=== PATIENT | female | born 1990 | race Caucasian/White ===

== ENCOUNTER 2020-08-08 14:35 | Emergency (ER) | payer OTHER, SELFPAY ==
[2020-08-08 15:00] VITALS: BP 155/88; PULSE 91; RESP 16; TEMP 36.2; O2SAT 97; BMI 31.9
--- NOTE | 2020-08-08 15:06 | DI.US.S_ITS ---
PROCEDURE: US ABDOMEN LIMITED INDICATIONS: RIGHT UPPER QUADRANT PAIN TECHNIQUE: Real-time focused scanning was performed of the abdomen, with image documentation. COMPARISON: None. FINDINGS: The liver is normal in size at 14.2 cm craniocaudad with normal echotexture. The gallbladder is normal and no biliary distention is found. The pancreas could not be seen due to bowel gas. IMPRESSION: Normal limited abdominal ultrasound of the right upper quadrant, source of pain is not found. Dictated by: James Adam M.D. on 08/08/2020 at 15:52 Approved by: James Adam M.D. on 08/08/2020 at 15:53
[2020-08-08 15:58] LABS: Add Manual Diff / Slide Review NO; Basophils Absolute Auto 100 /uL (0-100); Basophils Percent Auto 0.8 % (0-2); Eosinophils Absolute Auto 0 /uL (0-450); Eosinophils Percent Auto 0.3 % (2-4); Hemoglobin 13.7 g/dL (12.0-16.0); Lymphocytes Absolute Auto 1900 /uL (1100-4500); Mean Corpuscular HGB Conc 33.5 % (30-36); Mean Corpuscular Hemoglobin 29.6 PG (26-34); Mean Corpuscular Volume 88.3 fL (80-100); Monocytes Absolute Auto 900 /uL (0-900); Monocytes Percent Auto 8.5 % (3-14); Neutrophils Absolute Auto 7300 /uL (1500-7000); Neutrophils Percent Auto 71.4 % (50-75); Platelet Count 229 X10^3/uL (150-400); Red Blood Cell Count 4.64 X10^6/uL (4.0-5.2); White Blood Cell Count 10.2 X10^3/uL (4.5-11.0)
[2020-08-08 16:04] LABS: INR 1.2 (0.9-1.3); Prothrombin Time 13.8 SECONDS (10.1-12.7)
[2020-08-08 16:07] LABS: PTT Partial Thromboplastin Tim 30 SECONDS (26.4-36.2)
[2020-08-08 16:09] LABS: Alanine Aminotransferase 16 IU/L (<35); Albumin 4.6 g/dL (3.5-5.0); Albumin Globulin Ratio 1.4 (1.0-2.8); Alkaline Phosphatase 61 U/L (38-126); Aspartate Aminotransferase 21 IU/L (14-36); BUN Creatinine Ratio 10.8 (6-22); Bilirubin Total 0.9 mg/dL (0.2-1.3); Blood Urea Nitrogen 7 mg/dL (7-17); Calcium 9.9 mg/dL (8.4-10.2); Carbon Dioxide 25 mmol/L (22-32); Chloride 103 mmol/L (98-107); Estimated Glomerular Filt Rate > 60.0 mL/min (>60); Globulin 3.3 g/dL (1.7-4.1); Glucose 85 mg/dL (70-100); HEMOLYSIS < 15 (0-50); Lipase 41 U/L (23-300); Potassium 3.8 mmol/L (3.4-5.1); Sodium 137 mmol/L (137-145); Total Protein 7.9 g/dL (6.3-8.2)
--- NOTE | 2020-08-08 16:13 | ED.ABDPAIN ---
HPI - Abdominal Pain General Chief Complaint: Abdominal Pain Stated Complaint: gall bladder issues Time Seen by Provider: 08/08/20 15:43 Source: patient Mode of arrival: Ambulatory Limitations: no limitations History of Present Illness HPI narrative: Patient is a 30-year-old female complaining of abdominal pain ongoing for last 2-3 days. She said initially started in the left upper quadrant but seems to be in right upper quadrant now radiating around to her back sometimes. She has been having some nauseous decreased appetite she also has some lower abdominal cramping. She overall just does not feel well. No diarrhea. She denies any chest pain shortness of breath or fever. She denies any painful or frequent urination. MD complaint: abdominal pain Onset (ago): day(s) Pain Consistency: constant Location: diffuse and RUQ Severity: moderate Quality: cramping Radiation: none Related Data Previous Rx's Medication Instructions Recorded ondansetron 4 mg PO Q8H PRN #10 tab 08/08/20 Allergies Allergy/AdvReac Type Severity Reaction Status Date / Time cyclobenzaprine Allergy Intermediate Confusion Verified 08/08/20 16:17 Review of Systems Review of Systems ROS Unobtainable: All systems reviewed & are unremarkable except as noted in HPI and below Constitutional Constitutional: Reports chills, Reports fatigue and Reports poor appetite ENT Ears, Nose, Mouth, and Throat: Denies change in voice, Denies neck pain and Denies sore throat Cardiovascular Cardiovascular: Denies chest pain, Denies irregular heart rhythm, Denies lightheadedness, Denies palpitations, Denies dyspnea, Denies dyspnea on exertion and Denies orthopnea Respiratory Respiratory: Denies cough, Denies dyspnea, Denies dyspnea on exertion and Denies wheezing Gastrointestinal Gastrointestinal: Reports as per HPI, Denies abdominal pain, Reports nausea and Reports vomiting Genitourinary Genitourinary: Denies urinary hesitancy and Denies urinary incontinence Genitourinary: Denies urinary incontinence and Denies urinary hesitancy Musculoskeletal Musculoskeletal: Denies back pain and Denies neck pain Endocrine Endocrine: Reports fatigue and Denies palpitations Allergic/Immunologic Allergic/Immunologic: Denies wheezing Patient History Medical History ADHD Depression Social History Smoking Status: Current some day smoker Smoking Status: Current some day smoker Substance Use Type: does not use Exam Initial Vital Signs Initial Vital Signs: Vital Signs Temperature 97.2 F L 08/08/20 15:00 Pulse Rate 91 H 08/08/20 15:00 Respiratory Rate 16 08/08/20 15:00 Blood Pressure 155/88 H 08/08/20 15:00 Pulse Oximetry 97 08/08/20 15:00 GENERAL: Alert 30-year-old female appears in mild discomfort HEENT: Head atraumatic,EOMI, pupils reactive, face symmetric, moist mucous membranes CARDIOVASCULAR: Regular rate and rhythm without murmurs, rubs or gallops. RESPIRATORY: Breath sounds equal bilaterally, no wheezes rales or rhonchi. ABDOMEN: Soft, lower abdominal tenderness mild right upper quadrant pain no Campos sign EXTREMITIES: Normal range of motion, no clubbing or edema. Neurovascularly intact NEUROLOGICAL: Alert and oriented x4.Normal gait and speech. Cranial nerves II through XII grossly intact. SKIN: Warm, dry, no laceration, no petechiae, no rashes or lesions. Course Orders Ordered: ED Orders 08/08/20 15:06 US abdomen limited Stat 08/08/20 15:49 Complete Blood Count AUTO DIFF Stat Comprehensive Metabolic Panel Stat Lipase Stat Partial Thromboplastin Time Stat Prothrombin Time INR Stat 08/08/20 15:54 Urine Culture Stat Urine Microscopic Stat Discontinued Medications Sodium Chloride (Normal Saline 0.9%) 1,000 mls @ 1,000 mls/hr IV BOLUS ONE Stop: 08/08/20 16:32 Last Infusion: 08/08/20 17:04 Dose: 0 mls/hr Documented by: Admin: 08/08/20 16:17 Dose: 1,000 mls/hr Documented by: WILBUR Sodium Chloride (Normal Saline 0.9%) 1,000 mls @ 1,000 mls/hr IV BOLUS ONE Stop: 08/08/20 17:12 Last Admin: 08/08/20 17:57 Dose: Not Given Documented by: WILBUR Ketorolac Tromethamine (Ketorolac 60 Mg/2 Ml Vial) 15 mg IV NOW ONE Stop: 08/08/20 16:16 Last Admin: 08/08/20 16:22 Dose: 15 mg Documented by: WILBUR Ondansetron HCl (Ondansetron 4 Mg/2 Ml Inj) 4 mg IV NOW ONE Stop: 08/08/20 15:34 Last Admin: 08/08/20 16:17 Dose: 4 mg Documented by: WILBUR Vital Signs Vital signs: Vital Signs - 8 hr 08/08/20 15:00 08/08/20 17:11 08/08/20 18:19 Temperature 97.2 F L Pulse Rate 91 H 70 84 Respiratory Rate 16 16 16 Blood Pressure 155/88 H 135/82 130/82 Pulse Oximetry 97 99 97 MDM - Abdominal Pain Lab Data Attestation: I reviewed the patient's lab results. Result diagrams: 08/08/20 15:49 08/08/20 15:49 Labs: Lab Results 08/08/20 08/08/20 08/08/20 Range/Units 15:49 15:49 15:49 WBC 10.2 (4.5-11.0) X10^3/uL RBC 4.64 (4.0-5.2) X10^6/uL Hgb 13.7 (12.0-16.0) g/dL Hct 41.0 (36-46) % MCV 88.3 (80-100) fL MCH 29.6 (26-34) PG MCHC 33.5 (30-36) % RDW 13.0 (11.6-14.8) % Plt Count 229 (150-400) X10^3/uL Neut % (Auto) 71.4 (50-75) % Lymph % (Auto) 19.0 L (25-40) % [place] % (Auto) 8.5 (3-14) % Eos % (Auto) 0.3 L (2-4) % Baso % (Auto) 0.8 (0-2) % Neut # (Auto) 7300 H (0065-3755) /uL Lymph # (Auto) 1900 (2475-4638) /uL [place] # (Auto) 900 (0-900) /uL Eos # (Auto) 0 (0-450) /uL Baso # (Auto) 100 (0-100) /uL PT 13.8 H (10.1-12.7) SECONDS INR 1.2 (0.9-1.3) APTT 30 (26.4-36.2) SECONDS Sodium 137 (137-145) mmol/L Potassium 3.8 (3.4-5.1) mmol/L Chloride 103 (98-107) mmol/L Carbon Dioxide 25 (22-32) mmol/L BUN 7 (7-17) mg/dL Creatinine 0.65 (0.52-1.04) mg/dL Estimated GFR > 60.0 (>60) mL/min BUN/Creatinine Ratio 10.8 (6-22) Glucose 85 (70-100) mg/dL Calcium 9.9 (8.4-10.2) mg/dL Total Bilirubin 0.9 (0.2-1.3) mg/dL AST 21 (14-36) IU/L ALT 16 (<35) IU/L Alkaline Phosphatase 61 (38-126) U/L Total Protein 7.9 (6.3-8.2) g/dL Albumin 4.6 (3.5-5.0) g/dL Globulin 3.3 (1.7-4.1) g/dL Albumin/Globulin Ratio 1.4 (1.0-2.8) Lipase 41 (23-300) U/L Urine RBC (0-5/HPF) Urine WBC (0-5/HPF) Urine Bacteria (None) Ur Culture Indicated? 08/08/20 Range/Units 15:54 WBC (4.5-11.0) X10^3/uL RBC (4.0-5.2) X10^6/uL Hgb (12.0-16.0) g/dL Hct (36-46) % MCV (80-100) fL MCH (26-34) PG MCHC (30-36) % RDW (11.6-14.8) % Plt Count (150-400) X10^3/uL Neut % (Auto) (50-75) % Lymph % (Auto) (25-40) % [place] % (Auto) (3-14) % Eos % (Auto) (2-4) % Baso % (Auto) (0-2) % Neut # (Auto) (0739-4531) /uL Lymph # (Auto) (5200-4235) /uL [place] # (Auto) (0-900) /uL Eos # (Auto) (0-450) /uL Baso # (Auto) (0-100) /uL PT (10.1-12.7) SECONDS INR (0.9-1.3) APTT (26.4-36.2) SECONDS Sodium (137-145) mmol/L Potassium (3.4-5.1) mmol/L Chloride (98-107) mmol/L Carbon Dioxide (22-32) mmol/L BUN (7-17) mg/dL Creatinine (0.52-1.04) mg/dL Estimated GFR (>60) mL/min BUN/Creatinine Ratio (6-22) Glucose (70-100) mg/dL Calcium (8.4-10.2) mg/dL Total Bilirubin (0.2-1.3) mg/dL AST (14-36) IU/L ALT (<35) IU/L Alkaline Phosphatase (38-126) U/L Total Protein (6.3-8.2) g/dL Albumin (3.5-5.0) g/dL Globulin (1.7-4.1) g/dL Albumin/Globulin Ratio (1.0-2.8) Lipase (23-300) U/L Urine RBC 1-5/hpf (0-5/HPF) Urine WBC 10-30/hpf H (0-5/HPF) Urine Bacteria None seen (None) Ur Culture Indicated? Specimen cultured Point of care testing: Point of Care Testing Test Results Negative Urine Dip Bedside Urine Glucose Negative Bedside Urine Bilirubin - Negative Bedside Urine Ketone + 15 Urine Specific [place] 1.015 Bedside Urine pH 6 Bedside Urine Protein ++ 100 Bedside Urine Urobilinogen - Negative Bedside Urine Nitrite - Negative Bedside Urine Leukocytes ++ 125 Esterase Imaging Data US - abdomen: Radiologist's Impression: PROCEDURE: US ABDOMEN LIMITED INDICATIONS: RIGHT UPPER QUADRANT PAIN TECHNIQUE: Real-time focused scanning was performed of the abdomen, with image documentation. COMPARISON: None. FINDINGS: The liver is normal in size at 14.2 cm craniocaudad with normal echotexture. The gallbladder is normal and no biliary distention is found. The pancreas could not be seen due to bowel gas. IMPRESSION: Normal limited abdominal ultrasound of the right upper quadrant, source of pain is not found. Dictated by: James Adam M.D. on 08/08/2020 at 15:52 MDM Narrative Medical decision making narrative: The patient blood work is overall reassuring pain is better after Toradol and Zofran. Ultrasound is negative at this time she really has diffuse pain and no other real localization of pain I see no need for any further imaging. He has a gastritis will treat with oral hydration and Zofran. Discharge Plan Departure Patient Disposition: Home Clinical Impression: Gastroenteritis Instructions: DI for Viral Gastroenteritis -- Adult Activity Restrictions/Additional Instructions: 1) You have been diagnosed with gastritis 2) What to do: Drink frequent but small amounts of fluids. I recommend Gatorade or a Gatorade-like product, as it has small amounts of sugar and salts that improve fluid retention. 3) Take medications as directed Zofran 4 mg every 8 hours if needed for nausea vomiting 4) Follow up with your primary care provider in 2-3 days [and follow up with ortho, urology etc] 5) Return to ER if you should have any new or worsening symptoms such as, unable to hold down fluids despite use of anti-nausea medications and the small volume oral rehydration strategy. Prescriptions: New ondansetron 4 mg tablet,disintegrating 4 mg PO Q8H PRN (Reason: nausea and vomiting) Qty: 10 RF: 0 Referrals: [facility] [Outside]
[2020-08-08] MEDS: SODIUM CHLORIDE 0.9% 1,000 ML 1000 ML IV (16:17)
[2020-08-08] MEDS: ONDANSETRON 4 MG/2 ML INJ IV (16:17)
[2020-08-08] MEDS: KETOROLAC 60 MG/2 ML VIAL 15 MG IV (16:22)
[2020-08-08 17:11] VITALS: BP 135/82; PULSE 70; RESP 16; O2SAT 99
[2020-08-08 17:41] LABS: Bacteria Urine None Seen
[2020-08-08 17:48] LABS: Culture Indicated Urine Specimen Cultured; RBC Urine 1-5/HPF (0-5/HPF); WBC Urine 10-30/HPF (0-5/HPF)
[2020-08-08 18:19] VITALS: BP 130/82; PULSE 84; RESP 16; O2SAT 97
== END 2020-08-08 18:21 | disposition home or self-care (01) ==
PROVIDERS: Emergency Provider Emergency Medicine
DX: K52.9 Noninfective gastroenteritis and colitis, unspecified (principal)
CPT/HCPCS: 36415; 76705; 80053; 81003; 81015; 81025; 83690; 85025; 85610; 85730; 87077; 87086; 87186; 96361; 96374; 96375; 99284; J1885; J2405

== ENCOUNTER 2024-11-11 19:20 | Emergency (ER) | payer OTHER, SELFPAY ==
[2024-11-11 19:38] VITALS: BP 121/78; PULSE 62; RESP 17; O2SAT 97; BMI 31.4
--- NOTE | 2024-11-11 19:44 | DI.RAD.S_ITS ---
PROCEDURE: XR CHEST 1V INDICATIONS: bradycardia TECHNIQUE: One view of the chest was acquired. COMPARISON: None. FINDINGS: Surgical changes and devices: None. Lungs and pleura: Lungs are clear. No pleural effusions or pneumothorax. Mediastinum: Mediastinal contours appear normal. Heart size is normal. Bones and chest wall: No suspicious bony lesions. Overlying soft tissues appear unremarkable. IMPRESSION: No acute cardiopulmonary abnormality is seen. Dictated by: Fredrick Jackson M.D. on 11/11/2024 at 20:16 Approved by: Fredrick Jackson M.D. on 11/11/2024 at 20:17
[2024-11-11 19:47] VITALS: PULSE 54; O2SAT 100
[2024-11-11 20:00] VITALS: BP 138/86; PULSE 66; RESP 21; O2SAT 100
[2024-11-11] MEDS: SODIUM CHLORIDE 0.9% 1,000 ML 1000 ML IV ×2 (20:00→21:20)
[2024-11-11] MEDS: ONDANSETRON 4 MG/2 ML INJ IV (20:00)
--- NOTE | 2024-11-11 20:07 | EKG_ITS ---
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
[2024-11-11 20:08] LABS: Add Manual Diff / Slide Review NO; Hematocrit 43.1 % (36-46); Hemoglobin 14.8 g/dL (12.0-16.0); Lymphocytes Absolute Auto 1500 /uL (1100-4500); Mean Corpuscular HGB Conc 34.3 % (30-36); Mean Corpuscular Hemoglobin 29.9 PG (26-34); Mean Corpuscular Volume 87.4 fL (80-100); Platelet Count 326 X10^3/uL (150-400)
[2024-11-11 20:17] LABS: Lactate (Lactic Acid) 3.8 mmol/L (0.7-2.1)
[2024-11-11 20:18] LABS: Alanine Aminotransferase 25 IU/L (<35); Albumin 5.0 g/dL (3.5-5.0); Albumin Globulin Ratio 1.4 (1.0-2.8); Alkaline Phosphatase 60 U/L (38-126); Blood Urea Nitrogen 5 mg/dL (7-17); Calcium 9.9 mg/dL (8.4-10.2); Carbon Dioxide 20 mmol/L (22-32); Chloride 104 mmol/L (98-107); Estimated Glomerular Filt Rate > 60 mL/min (>60); Globulin 3.6 g/dL (1.7-4.1); Glucose 165 mg/dL (70-99); HEMOLYSIS < 15 (0-50); Lipase 89 U/L (23-300); Magnesium 1.7 mg/dL (1.6-2.3); Potassium 3.5 mmol/L (3.4-5.1); Sodium 139 mmol/L (137-145); Total Protein 8.6 g/dL (6.3-8.2)
--- NOTE | 2024-11-11 20:25 | DI.CT.S_ITS ---
PROCEDURE: CT ABDOMEN PELVIS W CON INDICATIONS: abdominal pain TECHNIQUE: After the administration of intravenous contrast, axial sections acquired from the lung bases to the pubic symphysis. Coronal and sagittal reformats were performed. For radiation dose reduction, the following was used: automated exposure control, adjustment of mA and/or kV according to patient size. COMPARISON: None. FINDINGS: Image quality: Diagnostic. Lower Chest: No significant findings. ABDOMEN: Liver: No solid mass. Gallbladder: No radiopaque gallstones or wall thickening. Biliary ducts: No biliary dilation. Pancreas: No ductal dilation. Spleen: Size is within normal limits. Adrenal Glands: No adrenal nodules. Kidneys and Ureters: No hydronephrosis. No solid mass. No complex renal cystic lesion which requires follow up. Stomach and Bowel: Normal colonic caliber, without significant wall thickening. Peritoneum: No abnormal intraperitoneal fluid. No free air. Ventral Wall: No significant ventral hernia. Abdominal Nodes: No retroperitoneal or mesenteric adenopathy by size criteria. Vessels: Aorta and inferior vena cava are normal in size. PELVIS: Pelvic Organs: Unremarkable. Bladder: No bladder wall thickening, accounting for underdistention. Pelvic Nodes: No enlarged lymph nodes. Miscellaneous: No inguinal hernias are seen. Bones: No aggressive osseous abnormality. IMPRESSION: No acute intra-abdominal abnormality. Dictated by: Quang Kitchen M.D. on 11/11/2024 at 21:04 Approved by: Quang Kitchen M.D. on 11/11/2024 at 21:08
[2024-11-11 20:29] LABS: Troponin I < 0.012 ng/mL (0.01-0.034)
[2024-11-11 20:30] VITALS: PULSE 89; RESP 41; O2SAT 100
[2024-11-11 20:34] LABS: Procalcitonin < 0.030 ng/mL (<0.5)
[2024-11-11] MEDS: HALOPERIDOL 5 MG/ML VIAL 2 MG IV (20:36)
[2024-11-11] MEDS: diphenhydrAMINE 50 MG/ML VIAL 25 MG IV (20:36)
[2024-11-11 21:26] LABS: Appearance Urine UA CLEAR; Bilirubin Urine UA NEGATIVE (NEGATIVE); Color Urine UA YELLOW; Glucose Urine UA NEGATIVE (Negative); Ketones Urine UA 3+ (NEGATIVE); Leukocyte Esterase Urine UA NEGATIVE (NEGATIVE); Nitrite Urine UA NEGATIVE (Negative); Occult Blood Urine UA NEGATIVE (Negative); Protein Urine UA NEGATIVE (Negative); Specific Gravity Urine UA 1.010 (1.000-1.035); Urobilinogen Urine UA 0.2 E.U./dL (0.2)
[2024-11-11 21:30] VITALS: BP 153/92; PULSE 54; RESP 18; O2SAT 100
[2024-11-11 21:32] LABS: UR Morphine/Opiate cutoff 300 Negative (Negative); Ur Specific Gravity Normal (Normal); Urine MDMA Negative (Negative); Urine Methamphetamines Negative (Negative); Urine Tetrahydrocannabinol Positive (Negative); Urine Tricyclic Antidepressant Negative (Negative)
[2024-11-11 21:33] LABS: pH Urine UA 8.0 (4.5-8.0)
[2024-11-11 21:37] LABS: Culture Indicated Urine Cult Not Indicated
[2024-11-11 21:39] LABS: Reflexed Lactate in 2 Hours Y
[2024-11-11 22:00] VITALS: BP 175/84; PULSE 58; RESP 18; O2SAT 100
--- NOTE | 2024-11-11 22:19 | ED.GENADULT ---
HPI - General Adult General Chief complaint: Abdominal Pain Stated complaint: vomiting for a weak, weakness, abd pain Time Seen by Provider: 11/11/24 19:43 Source: patient Mode of arrival: Wheelchair History of Present Illness HPI narrative: 34-year-old woman who presents with severe nausea vomiting diarrhea for a week. She is pale, diaphoretic and radiating down to sinus Ronald of 30 while in triage. She states that she was concerned she ate some bad pasta that may have started this a week ago. She has had nausea related to marijuana use but has been trying to avoid marijuana recently. Has not had any in this last week. No fevers or chills Related Data Home Medications ?Medication ?Instructions ?Recorded ?Confirmed fluoxetine 20 mg capsule 20 mg PO DAILY 11/11/24 11/11/24 hydroxyzine HCl 25 mg tablet 25 mg PO DAILY 11/11/24 11/11/24 Previous Rx's ?Medication ?Instructions ?Recorded ondansetron 4 mg disintegrating 4 mg PO Q8H PRN nausea and 08/08/20 tablet vomiting #10 tabs ondansetron 4 mg disintegrating 4 mg PO Q8H PRN nausea and 11/12/24 tablet vomiting #14 tabs Allergies Allergy/AdvReac Type Severity Reaction Status Date / Time cyclobenzaprine Allergy Intermediate Confusion Verified 11/11/24 19:37 Review of Systems Review of Systems Narrative: Pertinent positive and negative findings as per HPI Patient History Medical History ADHD Depression Smoking Status: Former smoker tobacco type: vaping Exam Initial Vital Signs Initial Vital Signs: Vital Signs Pulse Rate 62 11/11/24 19:38 Respiratory Rate 17 11/11/24 19:38 Blood Pressure 121/78 11/11/24 19:38 Pulse Oximetry 97 11/11/24 19:38 Oxygen Delivery Method Room Air 11/11/24 19:38 General: Pale, diaphoretic, bradycardic actively vomiting and appears acutely ill HEENT: mucous membranes, normal sclera with reactive pupils, Respiratory: Lungs are clear to auscultation, no wheezing Cardiac: Tachycardic Regular rate and rhythm no murmurs Abdomen: Soft, nontender, no rebound or guarding, no flank pain Skin: Warm and dry, no rashes Neurologic: Globally weak but otherwise Grossly neurologically intact with no obvious asymmetries or abnormalities Extremities: No trauma, Psych: Cooperative, continued active retching Course Orders Ordered: ED Orders 11/11/24 19:44 XR chest 1V Stat EKG-12 Lead Stat 11/11/24 19:55 Complete Blood Count AUTO DIFF Stat Comprehensive Metabolic Panel Stat Lactate (Lactic Acid) Stat Lipase Stat Magnesium Stat Procalcitonin Stat Troponin I Stat 11/11/24 20:19 Blood Culture Stat 11/11/24 20:25 CT abdomen pelvis w con Stat 11/11/24 21:20 Urinalysis and Microscopic Stat Urine Drug Screen, Rapid Stat Discontinued Medications Diazepam (Diazepam 10 Mg/2 Ml Syringe) 5 mg IV NOW ONE Stop: 11/11/24 21:43 Last Admin: 11/11/24 21:46 Dose: 5 mg Documented By: TOPHER Diphenhydramine HCl (Diphenhydramine 50 Mg/Ml Vial) 25 mg IV NOW ONE Stop: 11/11/24 20:26 Last Admin: 11/11/24 20:36 Dose: 25 mg Documented By: JAD Haloperidol (Haloperidol 5 Mg/Ml Vial) 2 mg IV NOW ONE Stop: 11/11/24 20:26 Last Admin: 11/11/24 20:36 Dose: 2 mg Documented By: JAD Hydromorphone HCl (Hydromorphone Hcl 0.5 Mg/0.5 Ml Syringe) 0.5 mg IV NOW ONE Stop: 11/11/24 22:30 Last Admin: 11/11/24 22:37 Dose: 0.5 mg Sodium Chloride (Normal Saline 0.9%) 1,000 mls @ 1,000 mls/hr IV BOLUS ONE Stop: 11/11/24 20:43 Last Infusion: 11/11/24 21:18 Dose: Infused Documented By: Admin: 11/11/24 20:00 Dose: 1,000 mls/hr Documented By: NEGRO Sodium Chloride (Normal Saline 0.9%) 1,000 mls @ 1,000 mls/hr IV BOLUS ONE Stop: 11/11/24 21:24 Last Admin: 11/11/24 21:20 Dose: 1,000 mls/hr Documented By: JAD Lorazepam (Lorazepam 2 Mg/Ml Inj) 1 mg IV NOW ONE Stop: 11/11/24 21:40 Last Admin: 11/11/24 21:41 Dose: Not Given Documented By: TOPHER Ondansetron HCl (Ondansetron 4 Mg/2 Ml Inj) 4 mg IV NOW ONE Stop: 11/11/24 19:45 Last Admin: 11/11/24 20:00 Dose: 4 mg Documented By: NEGRO Pantoprazole Sodium (Pantoprazole 40 Mg Vial) 40 mg IV NOW ONE Stop: 11/11/24 22:30 Last Admin: 11/11/24 22:37 Dose: 40 mg Vital Signs Vital signs: Vital Signs - 8 hr 11/11/24 19:38 11/11/24 19:47 11/11/24 20:00 Pulse Rate 62 54 L Respiratory Rate 17 Blood Pressure 121/78 138/86 Pulse Oximetry 97 100 Oxygen Delivery Method Room Air 11/11/24 20:00 Pulse Rate 66 Respiratory Rate 21 Blood Pressure Pulse Oximetry 100 Oxygen Delivery Method Medical Decision Making Lab Data 11/11/24 19:55 11/11/24 19:55 Labs: Lab Results 11/11/24 11/11/24 11/11/24 Range/Units 19:55 21:20 21:20 WBC 14.3 H (4.5-11.0) X10^3/uL RBC 4.94 (4.0-5.2) X10^6/uL Hgb 14.8 (12.0-16.0) g/dL Hct 43.1 (36-46) % MCV 87.4 (80-100) fL MCH 29.9 (26-34) PG MCHC 34.3 (30-36) % RDW 12.4 (11.6-14.8) % Plt Count 326 (150-400) X10^3/uL Neut % (Auto) 83.2 H (50-75) % Lymph % (Auto) 10.3 L (25-40) % [place] % (Auto) 5.7 (3-14) % Eos % (Auto) 0.1 L (2-4) % Baso % (Auto) 0.7 (0-2) % Neut # (Auto) 41773 H (8276-2269) /uL Lymph # (Auto) 1500 (5336-3197) /uL [place] # (Auto) 800 (0-900) /uL Eos # (Auto) 0 (0-450) /uL Baso # (Auto) 100 (0-100) /uL Sodium 139 (137-145) mmol/L Potassium 3.5 (3.4-5.1) mmol/L Chloride 104 (98-107) mmol/L Carbon Dioxide 20 L (22-32) mmol/L BUN 5 L (7-17) mg/dL Creatinine 0.71 (0.52-1.04) mg/dL Estimated GFR > 60 (>60) mL/min BUN/Creatinine Ratio 7.0 (6-22) Glucose 165 H (70-99) mg/dL Lactate 3.8 H (0.7-2.1) mmol/L Calcium 9.9 (8.4-10.2) mg/dL Magnesium 1.7 (1.6-2.3) mg/dL Total Bilirubin 1.0 (0.2-1.3) mg/dL AST 28 (14-36) IU/L ALT 25 (<35) IU/L Alkaline Phosphatase 60 (38-126) U/L Troponin I < 0.012 (0.01-0.034) ng/mL Total Protein 8.6 H (6.3-8.2) g/dL Albumin 5.0 (3.5-5.0) g/dL Globulin 3.6 (1.7-4.1) g/dL Albumin/Globulin Ratio 1.4 (1.0-2.8) Lipase 89 (23-300) U/L Procalcitonin < 0.030 (<0.5) ng/mL Urine Color Yellow Urine Appearance Clear Urine pH 8.0 Normal (4.5-8.0) Ur Specific [place] 1.010 (1.000-1.035) Urine Protein Negative (Negative) Urine Glucose (UA) Negative (Negative) g/dL Urine Ketones 3+ H (NEGATIVE) Urine Occult Blood Negative (Negative) Urine Nitrate Negative (Negative) Urine Bilirubin Negative (NEGATIVE) Urine Urobilinogen 0.2 (0.2) E.U./dL Ur Leukocyte Esterase Negative (NEGATIVE) Urine RBC 0-1/hpf (0-5/HPF) Urine WBC 0-1/hpf (0-5/HPF) Ur Squamous Epith Cells 5-10 /hpf H (0-5/HPF) Urine Bacteria Few (2-10) H (None) Hyaline Casts 1-5/lpf (None) Urine Mucus 1+ H (Negative) Ur Culture Indicated? Cult not indicated Vol Urine Centrifuged 10ml (spun) U Opiates 300ng/mL cut Negative (Negative) Ur Oxycodone Screen Negative (Negative) Urine Methadone Screen Negative (Negative) Ur Barbiturates Screen Negative (Negative) U Tricyclic Antidepress Negative (Negative) Ur Phencyclidine Scrn Negative (Negative) Ur Amphetamines Screen Negative (Negative) U Methamphetamines Scrn Negative (Negative) Ur MDMA Scrn (Ecstasy) Negative (Negative) U Benzodiazepines Scrn Negative (Negative) Urine Cocaine Screen Negative (Negative) U Marijuana (THC) Screen Positive H (Negative) Urine Specific [place] Normal (Normal) Ur Creatinine Normal (Normal) 11/11/24 Range/Units 22:45 WBC (4.5-11.0) X10^3/uL RBC (4.0-5.2) X10^6/uL Hgb (12.0-16.0) g/dL Hct (36-46) % MCV (80-100) fL MCH (26-34) PG MCHC (30-36) % RDW (11.6-14.8) % Plt Count (150-400) X10^3/uL Neut % (Auto) (50-75) % Lymph % (Auto) (25-40) % [place] % (Auto) (3-14) % Eos % (Auto) (2-4) % Baso % (Auto) (0-2) % Neut # (Auto) (6080-9749) /uL Lymph # (Auto) (9574-0740) /uL [place] # (Auto) (0-900) /uL Eos # (Auto) (0-450) /uL Baso # (Auto) (0-100) /uL Sodium (137-145) mmol/L Potassium (3.4-5.1) mmol/L Chloride (98-107) mmol/L Carbon Dioxide (22-32) mmol/L BUN (7-17) mg/dL Creatinine (0.52-1.04) mg/dL Estimated GFR (>60) mL/min BUN/Creatinine Ratio (6-22) Glucose (70-99) mg/dL Lactate 1.6 (0.7-2.1) mmol/L Calcium (8.4-10.2) mg/dL Magnesium (1.6-2.3) mg/dL Total Bilirubin (0.2-1.3) mg/dL AST (14-36) IU/L ALT (<35) IU/L Alkaline Phosphatase (38-126) U/L Troponin I (0.01-0.034) ng/mL Total Protein (6.3-8.2) g/dL Albumin (3.5-5.0) g/dL Globulin (1.7-4.1) g/dL Albumin/Globulin Ratio (1.0-2.8) Lipase (23-300) U/L Procalcitonin (<0.5) ng/mL Urine Color Urine Appearance Urine pH (4.5-8.0) Ur Specific [place] (1.000-1.035) Urine Protein (Negative) Urine Glucose (UA) (Negative) g/dL Urine Ketones (NEGATIVE) Urine Occult Blood (Negative) Urine Nitrate (Negative) Urine Bilirubin (NEGATIVE) Urine Urobilinogen (0.2) E.U./dL Ur Leukocyte Esterase (NEGATIVE) Urine RBC (0-5/HPF) Urine WBC (0-5/HPF) Ur Squamous Epith Cells (0-5/HPF) Urine Bacteria (None) Hyaline Casts (None) Urine Mucus (Negative) Ur Culture Indicated? Vol Urine Centrifuged U Opiates 300ng/mL cut (Negative) Ur Oxycodone Screen (Negative) Urine Methadone Screen (Negative) Ur Barbiturates Screen (Negative) U Tricyclic Antidepress (Negative) Ur Phencyclidine Scrn (Negative) Ur Amphetamines Screen (Negative) U Methamphetamines Scrn (Negative) Ur MDMA Scrn (Ecstasy) (Negative) U Benzodiazepines Scrn (Negative) Urine Cocaine Screen (Negative) U Marijuana (THC) Screen (Negative) Urine Specific [place] (Normal) Ur Creatinine (Normal) Imaging Data CT scan - abdomen/pelvis: Radiologist's Impression: PROCEDURE: CT ABDOMEN PELVIS W CON INDICATIONS: abdominal pain TECHNIQUE: After the administration of intravenous contrast, axial sections acquired from the lung bases to the pubic symphysis. Coronal and sagittal reformats were performed. For radiation dose reduction, the following was used: automated exposure control, adjustment of mA and/or kV according to patient size. COMPARISON: None. FINDINGS: Image quality: Diagnostic. Lower Chest: No significant findings. ABDOMEN: Liver: No solid mass. Gallbladder: No radiopaque gallstones or wall thickening. Biliary ducts: No biliary dilation. Pancreas: No ductal dilation. Spleen: Size is within normal limits. Adrenal Glands: No adrenal nodules. Kidneys and Ureters: No hydronephrosis. No solid mass. No complex renal cystic lesion which requires follow up. Stomach and Bowel: Normal colonic caliber, without significant wall thickening. Peritoneum: No abnormal intraperitoneal fluid. No free air. Ventral Wall: No significant ventral hernia. Abdominal Nodes: No retroperitoneal or mesenteric adenopathy by size criteria. Vessels: Aorta and inferior vena cava are normal in size. PELVIS: Pelvic Organs: Unremarkable. Bladder: No bladder wall thickening, accounting for underdistention. Pelvic Nodes: No enlarged lymph nodes. Miscellaneous: No inguinal hernias are seen. Bones: No aggressive osseous abnormality. IMPRESSION: No acute intra-abdominal abnormality. Dictated by: Quang Kitchen M.D. on 11/11/2024 at 21:04 MDM Narrative Medical decision making narrative: CC: Vomiting and diarrhea for a week Complicating co-morbidities: Depression and anxiety Data collected from: patient, partner Medical records reviewed: Only other record is mentioned of gastroenteritis July of 2020 similar presentation Differential considered: Gastroenteritis, significant electrolyte abnormality, renal failure, bowel obstruction, intra-abdominal abscess or infection, cannabinoid hyperemesis syndrome Exam documented above, pertinent findings include: Patient is pale diaphoretic actively retching appears utterly miserable, abdomen is tender but nonsurgical, lungs are clear Lab Test results independently reviewed as above. Pertinent findings: CBC shows leukocytosis at 14.3 with left shift and no anemia Chemistries show appropriate renal function, glucose slightly elevated at 165 liver studies within normal limits Troponin is undetectable Lactic acid is elevated at 3.8 Procalcitonin is not elevated Urinalysis does not look like a bladder infection Urine drug screen is positive only for marijuana Independently reviewed EKG: Sinus bradycardia at a rate of 55, prolonged QT 499. Question peaked T-waves. Imaging studies independently reviewed: CT scan of the abdomen and pelvis does not show significant intra-abdominal pathology Treatments: 2 L of fluid, Zofran initially given for nausea ineffective. Haldol and Benadryl given to help with nausea. Increased psychomotor agitation so 5 mg of diazepam given to help with that as well as continued nausea uncontrolled by the Zofran. Dilaudid was helpful in overall pain can Discussion: 34-year-old woman with uncontrolled nausea and vomiting past for 5 days. Kidney function renal function are appropriate. She is feeling better after 3 L of fluid finally able to void. Zofran, diazepam, Benadryl and Haldol have all been use to help with nausea. She would like a prescription for Zofran to be able to take home. She was given dose of Dilaudid to help with abdominal pain which finally helped alleviate the remainder of the nausea. Findings reviewed with the patient. At this point there is no indication for hospitalization or further workup. We did discuss the importance of avoiding marijuana so that if that is part of the trigger with her vomiting episodes that she is removing that trigger. She is safe for discharge Discharge Plan Departure Patient Disposition: Home Clinical Impression: Nausea & vomiting Qualifiers: Vomiting type: unspecified Qualified Code(s): R11.2 - Nausea with vomiting, unspecified Instructions: DI for Nausea -- Adult Activity Restrictions/Additional Instructions: Thank you for coming in today. I am sorry that you are suffering with his horrible nausea and vomiting Fortunately, I am not finding anything life-threatening. You are given a total of 3 L of fluid, Zofran, Benadryl, Haldol, diazepam as well as Dilaudid all to help with the pain in the vomiting. I will send you home with a prescription for Zofran. I would avoid heavy foods for the next day or 2 to allow your stomach to readjust to eating. I would also recommend continuing to avoid marijuana. If that is contributing at all to these symptoms would be nice to remove the exposure overall. If you find that you are getting worse or develop any new symptoms, please feel free to return to the emergency department for further evaluation. Prescriptions: New ondansetron 4 mg tablet,disintegrating 4 mg PO Q8H PRN (Reason: nausea and vomiting) Qty: 14 0RF No Action hydroxyzine HCl 25 mg tablet 25 mg PO DAILY fluoxetine 20 mg capsule 20 mg PO DAILY ondansetron 4 mg tablet,disintegrating 4 mg PO Q8H PRN (Reason: nausea and vomiting) Qty: 10 0RF Stand Alone Forms: Patient Portal/API
[2024-11-11] MEDS: PANTOPRAZOLE 40 MG VIAL IV (22:37)
[2024-11-11 23:02] LABS: Lactate 2HR (Lactic Acid Rflx) 1.6 mmol/L (0.7-2.1)
[2024-11-12 00:30] VITALS: BP 161/92; PULSE 59; RESP 19; O2SAT 100
[2024-11-12] MEDS: SODIUM CHLORIDE 0.9% 1,000 ML 1000 ML IV (00:57)
[2024-11-12] MEDS: HYDROMORPHONE 1 MG INJ 0.5 MG IV (00:57)
[2024-11-12 01:30] VITALS: BP 99/58; PULSE 58; RESP 28; O2SAT 99
--- NOTE | 2024-11-12 02:16 | PC.NURSE ---
2x2 gauze placed with coban to bring swelling at site down
[2024-11-12 02:57] VITALS: BP 127/62; PULSE 60; RESP 28; O2SAT 100
== END 2024-11-12 03:00 | disposition home or self-care (01) ==
PROVIDERS: Emergency Provider Emergency Medicine
DX: R11.2 Nausea with vomiting, unspecified (principal); R19.7 Diarrhea, unspecified; R00.1 Bradycardia, unspecified
CPT/HCPCS: 36415; 71045; 74177; 80053; 80305; 81001; 83605; 83690; 83735; 84145; 84484; 85025; 87040; 93005; 96361; 96374; 96375; 96376; 99284; J1171; J1200; J1630; J2405; J2470; J3360; Q9967

== ENCOUNTER 2024-11-17 22:37 | Emergency (ER) | payer OTHER, SELFPAY ==
[2024-11-17 22:46] VITALS: BP 151/98; PULSE 78; RESP 16; TEMP 37.4; O2SAT 99; BMI 30.8
[2024-11-17] MEDS: ONDANSETRON 4 MG/2 ML INJ IV (23:01)
[2024-11-17 23:16] LABS: Add Manual Diff / Slide Review NO; Hematocrit 45.0 % (36-46); Hemoglobin 16.4 g/dL (12.0-16.0); Lymphocytes Absolute Auto 1700 /uL (1100-4500); Mean Corpuscular HGB Conc 36.4 % (30-36); Mean Corpuscular Hemoglobin 30.8 PG (26-34); Mean Corpuscular Volume 84.6 fL (80-100); Platelet Count 324 X10^3/uL (150-400)
[2024-11-17 23:21] LABS: Culture Indicated Urine Cult Not Indicated
[2024-11-17 23:23] LABS: Alanine Aminotransferase 31 IU/L (<35); Albumin 5.2 g/dL (3.5-5.0); Albumin Globulin Ratio 1.3 (1.0-2.8); Alkaline Phosphatase 55 U/L (38-126); Blood Urea Nitrogen 5 mg/dL (7-17); Calcium 9.9 mg/dL (8.4-10.2); Carbon Dioxide 26 mmol/L (22-32); Chloride 95 mmol/L (98-107); Estimated Glomerular Filt Rate > 60 mL/min (>60); Globulin 3.9 g/dL (1.7-4.1); Glucose 101 mg/dL (70-99); HEMOLYSIS < 15 (0-50); Lipase 72 U/L (23-300); Potassium 3.1 mmol/L (3.4-5.1); Sodium 135 mmol/L (137-145); Total Protein 9.1 g/dL (6.3-8.2)
[2024-11-18] VITALS (14 sets, daily range): BP systolic 115–171; BP diastolic 66–100; PULSE 60–89; RESP 14–22; O2SAT 96–100
[2024-11-18 00:16] LABS: RBC Morphology Normal Morphology
--- NOTE | 2024-11-18 01:37 | EKG_ITS ---
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
--- NOTE | 2024-11-18 01:37 | ED_ITS ---
HPI - Abdominal Pain General Chief Complaint: Abdominal Pain Stated Complaint: cant keep anything down, wants gallbladder checked Time Seen by Provider: 11/18/24 01:12 Source: patient Mode of arrival: Ambulatory History of Present Illness HPI narrative: 34-year-old female reports gallbladder problems, intermittent ongoing nausea and vomiting, no known diabtetes/gastrparesis, not known to be , no scheduled or pending cholecystectomy, seen here last week, CT scan abdomen done at that time, still having nausea or nonbloody vomiting, nonbloody emesis, no diarrhea, no black or red stools. Home supply Zofran not helping. Reglan she believes did not help much last visit. Upper abdominal pain. No vaginal bleeding. No painful or frequent urination. No chest pain or shortness of breath. Related Data Home Medications ?Medication ?Instructions ?Recorded ?Confirmed fluoxetine 20 mg capsule 20 mg PO DAILY 11/11/2410/24 hydroxyzine HCl 25 mg tablet 25 mg PO DAILY 11/11/24 0 11/11/24 Previous Rx's ?Medication ?Instructions ?Recorded ondansetron 4 mg disintegrating 4 mg PO Q8H PRN nausea and 08/08/20 tablet vomiting #10 tabs ondansetron 4 mg disintegrating 4 mg PO Q8H PRN nausea and 11/12/24 tablet vomiting #14 tabs omeprazole 20 mg capsule,delayed 20 mg PO DAILY upper abdominal 11/18/24 release pain 30 days #30 caps Allergies Allergy/AdvReac Type Severity Reaction Status Date / Time cyclobenzaprine Allergy Intermediate Confusion Verified 11/17/24 22:46 Patient History Medical History ADHD Depression tobacco type: vaping Exam Narrative Exam Narrative: GENERAL: Well-developed patient, in mild distress. HEAD: Atraumatic. Normocephalic. EYES: Pupils equal round and reactive. Extraocular motions intact. No scleral icterus. No injection or drainage. ENT: Nose without bleeding, purulent drainage. Throat without erythema, tonsillar hypertrophy or exudate. Airway patent. NECK: Trachea midline. Non tender CARDIOVASCULAR: Regular rate and rhythm without murmurs, gallops, or rubs. RESPIRATORY: Clear to auscultation. Breath sounds equal bilaterally. No wheezes, rales, or rhonchi. GASTROINTESTINAL: Mild tenderness epigastrium, nonrigid, not particularly tender right upper quadrant versus epigastrium, no obvious periumbilical or other ventral hernia. Bowel tones unremarkable. EXTREMITIES: No edema or joint tenderness. BACK: Nontender without deformity or crepitance. No flank tenderness. NEURO: AOx3. Motor functions grossly nonfocal. SKIN: No rash or erythema of visible areas Initial Vital Signs Initial Vital Signs: Vital Signs Temperature 99.3 F 11/17/24 22:46 Pulse Rate 78 11/17/24 22:46 Respiratory Rate 16 11/17/24 22:46 Blood Pressure 151/98 H 11/17/24 22:46 Pulse Oximetry 99 11/17/24 22:46 Oxygen Delivery Method Room Air 11/17/24 22:46 Course Orders Ordered: Discontinued Medications Hydrocodone Bitart/Acetaminophen (Hydrocodone/Acet 5/325 Prepack) 1 bottle MISC DIRECTED ONE Stop: 11/18/24 04:44 Last Admin: 11/18/24 04:48 Dose: 1 bottle Documented By: DM Diphenhydramine HCl (Diphenhydramine 50 Mg/Ml Vial) 50 mg IV NOW ONE Stop: 11/18/24 01:36 Last Admin: 11/18/24 01:42 Dose: 50 mg Documented By: MD Droperidol (Droperidol 2.5 Mg/Ml Vial) 2.5 mg IV NOW ONE Stop: 11/18/24 01:53 Last Admin: 11/18/24 02:05 Dose: 2.5 mg Documented By: DM Sodium Chloride (Normal Saline 0.9%) 1,000 mls @ 1,000 mls/hr IV BOLUS ONE Stop: 11/18/24 02:38 Last Infusion: 11/18/24 03:46 Dose: Infused Documented By: Admin: 11/18/24 01:43 Dose: 1,000 mls/hr Documented By: DM Sodium Chloride (Normal Saline 0.9%) 1,000 mls @ 1,000 mls/hr IV BOLUS ONE Stop: 11/18/24 02:39 Last Admin: 11/18/24 01:46 Dose: Not Given Documented By: DM Metoclopramide HCl (Metoclopramide 10 Mg/2 Ml Inj) 10 mg IV NOW ONE Stop: 11/18/24 01:36 Last Admin: 11/18/24 01:42 Dose: 10 mg Documented By: DM Ondansetron HCl (Ondansetron 4 Mg/2 Ml Inj) 4 mg IV NOW PRN PRN Reason: Nausea And Vomiting Last Admin: 11/17/24 23:01 Dose: 4 mg Documented By: DM Ondansetron HCl (Ondansetron 4 Mg Odt) 4 mg PO NOW PRN PRN Reason: Nausea And Vomiting Pantoprazole Sodium (Pantoprazole 40 Mg Vial) 40 mg IV NOW ONE Stop: 11/18/24 03:48 Last Admin: 11/18/24 03:51 Dose: 40 mg Documented By: DM Potassium Chloride (Potassium Chloride 20 Meq/15 Ml Udc) 40 meq PO NOW ONE Stop: 11/18/24 01:13 Last Admin: 11/18/24 03:51 Dose: 40 meq Documented By: LS Vital Signs Vital signs: Vital Signs - 8 hr 11/17/24 22:46 Temperature 99.3 F Pulse Rate 78 Respiratory Rate 16 Blood Pressure 151/98 H Pulse Oximetry 99 Oxygen Delivery Method Room Air MDM - Abdominal Pain Lab Data Attestation: I reviewed the patient's lab results. Lab results narrative: White blood cell count 93955, hemoglobin 16.4, platelets adequate. Glucose 101. Normal renal function, normal serum CO2. Sodium low 135, potassium low 3.1. Total bilirubin for then 1.7 with other liver functions unremarkable. Lipase 72-. POC urine negative. Urinalysis negative. 11/17/24 23:02 11/17/24 23:02 Labs: Lab Results 11/17/24 Range/Units 23:02 WBC 10.9 (4.5-11.0) X10^3/uL RBC 5.32 H (4.0-5.2) X10^6/uL Hgb 16.4 H (12.0-16.0) g/dL Hct 45.0 (36-46) % MCV 84.6 (80-100) fL MCH 30.8 (26-34) PG MCHC 36.4 H (30-36) % RDW 13.2 (11.6-14.8) % Plt Count 324 (150-400) X10^3/uL Neut % (Auto) 72.1 (50-75) % Lymph % (Auto) 15.6 L (25-40) % [place] % (Auto) 11.0 (3-14) % Eos % (Auto) 0.3 L (2-4) % Baso % (Auto) 1.0 (0-2) % Neut # (Auto) 7900 H (1911-6361) /uL Lymph # (Auto) 1700 (4102-8007) /uL [place] # (Auto) 1200 H (0-900) /uL Eos # (Auto) 0 (0-450) /uL Baso # (Auto) 100 (0-100) /uL Platelet Estimate Adequate on smear RBC Morphology Normal morphology Sodium 135 L (137-145) mmol/L Potassium 3.1 L (3.4-5.1) mmol/L Chloride 95 L (98-107) mmol/L Carbon Dioxide 26 (22-32) mmol/L BUN 5 L (7-17) mg/dL Creatinine 0.72 (0.52-1.04) mg/dL Estimated GFR > 60 (>60) mL/min BUN/Creatinine Ratio 6.9 (6-22) Glucose 101 H (70-99) mg/dL Calcium 9.9 (8.4-10.2) mg/dL Total Bilirubin 1.7 H (0.2-1.3) mg/dL AST 30 (14-36) IU/L ALT 31 (<35) IU/L Alkaline Phosphatase 55 (38-126) U/L Total Protein 9.1 H (6.3-8.2) g/dL Albumin 5.2 H (3.5-5.0) g/dL Globulin 3.9 (1.7-4.1) g/dL Albumin/Globulin Ratio 1.3 (1.0-2.8) Lipase 72 (23-300) U/L Urine RBC None seen (0-5/HPF) Urine WBC 1-5/hpf (0-5/HPF) Ur Squamous Epith Cells 1-5 /hpf (0-5/HPF) Urine Bacteria Few (2-10) H (None) Ur Culture Indicated? Cult not indicated Vol Urine Centrifuged 10ml (spun) Point of care testing: Point of Care Testing Test Results Negative Urine Dip Bedside Urine Glucose Negative Bedside Urine Bilirubin - Negative Bedside Urine Ketone +++ [address] [place] 1.010 Bedside Urine Occult Blood + Bedside Urine pH 7.0 Bedside Urine Protein - Negative Bedside Urine Urobilinogen - Negative Bedside Urine Nitrite - Negative Bedside Urine Leukocytes +/- 15 Esterase ECG Data Attestation: I personally reviewed and interpreted this ECG as follows: Interpretation: 0146, normal sinus rhythm with sinus arrhythmia, ventricular rate 63. No obvious ST segment elevation or depression changes. MI 114, QRS 86, QTC 462. MDM Narrative Medical decision making narrative: 34-year-old female with upper abdominal discomfort ongoing, with nonbloody emesis, concerned about gallbladder issues, no scheduled cholecystectomy, afebrile sirs screen negative. Labs pending. DDx consider MJ, gastritis, PUD, biliary colic, cholecystitis, pancreatitis, other. IV Zofran, IV fluids, still having emesis, repeat IV Zofran, still emesis, IV Reglan/Benadryl little help. EKG shows normal QTC interval, IV droperidol. IV Protonix. Lab data: White blood cell count 92843, hemoglobin 16.4, platelets adequate. Glucose 101. Normal renal function, normal serum CO2. Sodium low 135, potassium low 3.1. Total bilirubin for then 1.7 with other liver functions unremarkable. Lipase 72-. POC urine negative. Urinalysis negative. Patient no longer vomiting, still has upper abdominal discomfort. Ultrasound right upper quadrant ordered. Right upper quadrant abdominal ultrasound. Impressions: ?Unremarkable right upper quadrant ultrasound.? See tele radiology report. Symptoms improved. No no longer having vomiting. Advised trial of antacid, she had been using Tums. Advised trial of oral PPI such as omeprazole. We will send prescription to her pharmacy. Consider upper endoscopy if not improving. Return precautions discussed. Has supply ODT ondansetron to use if she should have recurrence of nausea/vomiting. Discharged home, improved stable. Discharge Plan Departure Patient Disposition: Home Clinical Impression: Nausea and vomiting, Upper abdominal pain Activity Restrictions/Additional Instructions: Upper abdominal discomfort with nonbloody vomiting, nausea, unclear cause. Recent CT scan alternate visit reportedly unremarkable. Ultrasound of the right upper quadrant done today, was also unremarkable. IV fluids and IV antinausea medications for use to eventually control symptoms. IV Protonix antacid also given. Consider gastritis or acid reflux or some other acid related problem as a cause for your possible symptoms. Trial of omeprazole antacid for now. Prescription omeprazole sent to your pharmacy, however it is available [id number] if it should be cheaper and that generic formulation. Take omeprazole daily for the next 30 days. If not improved in the next week consider repeat evaluation with your regular doctor, and possible referral for upper endoscopy evaluation. You have a supply of ondansetron to use to help control nausea and vomiting. Recheck earlier to this/nearest emergency department for any change worsening symptoms or any concerns prior. Prescriptions: New omeprazole 20 mg capsule,delayed release(DR/EC) 20 mg PO DAILY 30 Days Qty: 30 0RF No Action hydroxyzine HCl 25 mg tablet 25 mg PO DAILY fluoxetine 20 mg capsule 20 mg PO DAILY ondansetron 4 mg tablet,disintegrating 4 mg PO Q8H PRN (Reason: nausea and vomiting) Qty: 14 0RF ondansetron 4 mg tablet,disintegrating 4 mg PO Q8H PRN (Reason: nausea and vomiting) Qty: 10 0RF Stand Alone Forms: Patient Portal/API
[2024-11-18] MEDS: METOCLOPRAMIDE 10 MG/2 ML INJ IV (01:42)
[2024-11-18] MEDS: diphenhydrAMINE 50 MG/ML VIAL IV (01:42)
[2024-11-18] MEDS: SODIUM CHLORIDE 0.9% 1,000 ML 1000 ML IV (01:43)
[2024-11-18] MEDS: droPERidol 2.5 MG/ML VIAL IV (02:05)
--- NOTE | 2024-11-18 03:45 | DI.US.S_ITS ---
PROCEDURE: US ABDOMEN LIMITED INDICATIONS: right upper quadrant ultrasound TECHNIQUE: Real-time scanning was performed of the abdominal and retroperitoneal organs, with image documentation. COMPARISON: [facility], [place], US ABDOMEN LIMITED, 08/08/2020, 15:20. FINDINGS: Liver: Liver is normal in size and homogeneous in echotexture. Gallbladder: No gallstones. No wall thickening. No pericholecystic edema. Negative sonographic Campos's sign. Biliary ducts: Intrahepatic bile ducts are non-dilated. Extrahepatic bile duct caliber measures 5 mm. Normal is 6-7 mm or less in diameter, or 10 mm or less post-cholecystectomy. Pancreas: Visualized portions of the pancreas are sonographically normal. Miscellaneous: No free abdominal fluid. IMPRESSION: Unremarkable right upper quadrant ultrasound Note: This final report is concordant with the preliminary after-hours interpretation provided by [employer] Approved by: Rad Marshall M.D. on 11/18/2024 at 9:25
[2024-11-18] MEDS: PANTOPRAZOLE 40 MG VIAL IV (03:51)
[2024-11-18] MEDS: POTASSIUM CHLORIDE 20 MEQ/15 ML UDC 40 MEQ PO (03:51)
--- NOTE | 2024-11-18 04:11 | PC.NURSE ---
US at bedside
[2024-11-18] MEDS: HYDROCODONE/ACET 5/325 PREPACK 1 BOTTLE MISC (04:48)
== END 2024-11-18 06:34 | disposition home or self-care (01) ==
PROVIDERS: Emergency Provider Emergency Medicine
DX: R11.2 Nausea with vomiting, unspecified (principal); R10.10 Upper abdominal pain, unspecified
CPT/HCPCS: 36415; 76705; 80053; 81003; 81015; 81025; 83690; 85025; 87086; 93005; 96361; 96374; 96375; 99284; J1200; J1790; J2405; J2470; J2765